=== PATIENT | male | born 1960 | race Caucasian/White ===

== ENCOUNTER 2024-10-03 13:25 | Emergency (ER) | payer SELFPAY ==
[2024-10-03] MEDS ORDERED: predniSONE 10 MG TAB ONE (15:03)
[2024-10-03] MEDS ORDERED: predniSONE 20 MG TAB ONE (15:03)
[2024-10-03] MEDS ORDERED: Colchicine 0.6 MG TAB ONE ×2 (15:04→16:34)
[2024-10-03] MEDS ORDERED: Pantoprazole 40 MG VIAL ONE (15:04)
[2024-10-03 15:29] LABS: #Basophils 0.1 thou/uL (0.0-0.2); #Eosinophils 0.1 thou/uL (0.0-0.7); #Lymphocytes 0.7 thou/uL (1.20-3.40); #Monocytes 0.3 thou/uL (0.11-0.59); #Neutrophils 3.5 thou/uL (1.40-6.50); %Basophils 1.2 % (0.0-1.0); %Eosinophils 2.4 % (0.0-10.0); %Lymphocytes 15.2 % (21.0-51.0); %Monocytes 6.3 % (0.0-10.0); %Neutrophils 75.0 % (42.0-75.0); ALT (SGPT) 59 U/L (Less than 45); AST (SGOT) 99 U/L (11-34); Albumin 3.4 g/dL (3.1-4.5); Alkaline Phosphatase 70 U/L (40-110); Anion Gap 18 mmol/L (10-20); BUN (Urea Nitrogen) 15 mg/dL (8.4-25.7); Bilirubin, Total 1.5 mg/dL (0.3-1.2); Calc. Creatinine Clearance 0 mL/min (70-130); Calcium 8.8 mg/dL (7.8-10.44); Carbon Dioxide 17 mmol/L (23-31); Chloride 108 mmol/L (98-107); Globulin 4.1 g/dL (2.4-3.5); Glucose 89 mg/dL (80-115); Hematocrit 39.7 % (42.0-52.0); Hemoglobin 13.1 g/dL (14.0-18.0); MDiff Complete? YES; Mean Corpuscular Hemoglobin 32.0 pg (27.0-31.0); Mean Corpuscular Volume 96.7 fl (78.0-98.0); Platelet Adequacy Comment Appears Decreased; Platelet Count 93 10x3/uL (130-400); Potassium 3.5 mmol/L (3.5-5.1); Red Blood Cell (RBC) Count 4.11 mill/uL (4.70-6.10); Sodium 139 mmol/L (136-145); Uric Acid 7.2 mg/dL (3.7-7.7); White Blood Cell (WBC) Count 4.7 10x3/uL (4.8-10.8)
== END 2024-10-03 17:10 | disposition home or self-care (01) ==
LOC: MADERS 13:25
DX: M10.9 Gout, unspecified (principal); F10.10 Alcohol abuse, uncomplicated; K63.89 Other specified diseases of intestine; M61.552 Other ossification of muscle, left thigh; D61.818 Other pancytopenia; Y90.9 Presence of alcohol in blood, level not specified
CPT/HCPCS: 36415; 72192; 80053; 84550; 85025; 96374; 96375; J2270; J2272; J2470; J7512